=== PATIENT | male | born 1935 | race Caucasian/White ===

== ENCOUNTER 2018-02-15 10:27 | Outpatient (CLI) | payer MEDICARE ==
--- NOTE | 2018-02-15 13:26 | RAD ---
RIGHT RIBS THREE VIEWS: History: Pain. Comparison: None. FINDINGS: No fracture. No cortical irregularity. No periosteal reaction. IMPRESSION: No fracture. POS: [facility]
== END 2018-02-15 10:28 | disposition home or self-care (01) ==
LOC: RAD-FRANK 10:27
DX: R07.81 Pleurodynia (principal)

== ENCOUNTER 2018-04-25 10:51 | Outpatient (CLI) | payer MEDICARE ==
--- NOTE | 2018-04-25 12:21 | RAD ---
CHEST 2 VIEWS: Date: 04/25/18 HISTORY: Hallucinations. Syncope. COMPARISON: 01/14/15 study. FINDINGS: Heart size within normal limits. There is flattening to the hemidiaphragms suggesting some chronic lon ng change. No focal infiltrative process. IMPRESSION: No active intrathoracic disease. Chronic lung change. Stable exam. POS: [facility]
== END 2018-04-25 10:52 | disposition home or self-care (01) ==
LOC: RAD-FRANK 10:51
PROVIDERS: ATTEND Nurse Practitioner Family
DX: R44.1 Visual hallucinations (principal)
CPT/HCPCS: 71046

== ENCOUNTER 2018-05-09 09:15 | Outpatient (CLI) | payer MEDICARE ==
--- NOTE | 2018-05-09 12:16 | CT ---
HEAD CT WITHOUT CONTRAST: Date: 05/09/18 HISTORY: Visual hallucinations. COMPARISON: 06/14/13. TECHNIQUE: Noncontrast head CT is performed from skull base to skull vertex. FINDINGS: No parenchymal hemorrhage. No extra-axial hematoma. No midline shift. Basilar cisterns are patent. Ag e-appropriate atrophy. Cortical oro-white matter differentiation preserved. Ventricles and sulci are patent and symmetric. Stable white matter hypodensities due to chronic small vessel ischemic change. 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 Adequate aeration of the sinuses and mastoid air cells. Both globes are unremarkable and intact. IMPRESSION: No acute intracranial process. POS: [facility]
== END 2018-05-09 09:16 | disposition home or self-care (01) ==
LOC: CT 09:15
DX: R44.1 Visual hallucinations (principal)
CPT/HCPCS: 70450

== ENCOUNTER 2022-05-19 11:09 | Observation (INO) | payer MEDICARE ==
[2022-05-19 12:05] LABS: #Eosinphils 0.5 thou/uL (0.0-0.7); #Lymphocytes 1.5 thou/uL (1.20-3.40); #Monocytes 0.8 thou/uL (0.11-0.59); %Basophils 0.2 % (0.0-1.0); %Eosinophils 5.6 % (0.0-10.0); %Monocytes 8.6 % (0.0-10.0); %Neutrophils 68.6 % (42.0-75.0); Hemoglobin 12.5 g/dL (14.0-18.0); Mean Corpuscular HGB CONC 31.9 g/dL (32.0-36.0); Mean Corpuscular Hemoglobin 29.8 pg (27.0-31.0); Mean Corpuscular Volume 93.4 fL (78.0-98.0); Mean Platelet Volume 8.3 fL (7.4-10.4); Platelet Count 242 thou/uL (130-400); RBC Distribution Width 14.5 % (11.5-14.5); Red Blood Cell (RBC) Count 4.18 mill/uL (4.70-6.10); White Blood Cell (WBC) Count 8.7 thou/uL (4.8-10.8)
[2022-05-19 12:29] LABS: BUN (Urea Nitrogen) 13 mg/dL (8.4-25.7); Bilirubin, Total 0.8 mg/dL (0.2-1.2); Calc. Creatinine Clearance 0 mL/min (70-130); Calcium 9.8 mg/dL (7.8-10.44); Estimated GFR 53; Glucose 133 mg/dL (83-110)
[2022-05-19 12:30] LABS: ALT (SGPT) 7 U/L (8-55); AST (SGOT) 23 U/L (5-34); Albumin 3.3 g/dL (3.4-4.8); Alkaline Phosphatase 106 U/L (40-110); Globulin 3.5 g/dL (2.4-3.5); Protein, Total 6.8 g/dL (5.8-8.1)
[2022-05-19 12:38] LABS: Anion Gap 16 mmol/L (10-20); Carbon Dioxide 35 mmol/L (23-31); Chloride 95 mmol/L (98-107); Potassium 4.1 mmol/L (3.5-5.1); Sodium 142 mmol/L (136-145)
[2022-05-19 13:34] LABS: Bilirubin Negative (Negative); Blood, Urine Negative (Negative); Clarity Clear (Clear); Glucose, Urine (Dipstick) Normal (Negative); Ketone, Urine Negative (Negative); Leukocyte Negative Leu/uL (Negative); Nitrite Negative (Negative); Protein, Urine (Dipstick) 10 mg/dL (Neg-Trace); pH, Urine 6.5 (5.0-9.0)
[2022-05-19 13:42] LABS: Amphetamine Not Detected (NotDetected); Barbiturates Screen Not Detected (NotDetected); Benzodiazepine Screen Not Detected (NotDetected); Cocaine Metabolite Screen Not Detected (NotDetected); Methadone Not Detected (NotDetected); Methamphetamine Not Detected (NotDetected); Opiate Screen Not Detected (NotDetected); Oxycodone Screen Not Detected (NotDetected); Phencyclidine (PCP) Not Detected (NotDetected); THC/Cannabinoid Screen Not Detected (NotDetected); Tricyclic Screen Not Detected (NotDetected)
[2022-05-19] MEDS ORDERED: Ondansetron ODT 4 MG TAB PO PRN (15:23)
[2022-05-19] MEDS ORDERED: Acetaminophen 325 MG TAB PO PRN (15:23)
[2022-05-19] MEDS ORDERED: Acetaminophen 650 MG Suppository PR PRN (15:23)
[2022-05-19] MEDS ORDERED: Ondansetron PF 4 MG/2 ML Vial IVP PRN (15:23)
[2022-05-19 15:40] LABS: SARS-CoV-2 NAA Rapid Test Not Detected (NotDetected)
[2022-05-19 16:04] LABS: Hemoglobin A1c 6.9 % (4.0-6.0)
[2022-05-19 16:16] LABS: Acetaminophen Less than 10.0 mcg/mL (10.0-30.0); Alcohol Less than 10 mg/dL (Less than 10); Salicylate Less than 8.0 mg/dL (15.0-30.0)
[2022-05-19] MEDS: Sodium Chloride 0.9% 1,000 ML IV SCH (16:19)
[2022-05-19] MEDS ORDERED: Aspirin 300 MG Suppository PR SCH (16:55)
[2022-05-19 17:42] LABS: Troponin I 0.019 ng/mL (< 0.028)
[2022-05-19 19:31] LABS: Troponin I Less than 0.010 ng/mL (< 0.028)
[2022-05-20 00:43] VITALS: BMI 20.5
[2022-05-20 05:17] LABS: #Eosinphils 0.5 thou/uL (0.0-0.7); #Lymphocytes 1.3 thou/uL (1.20-3.40); #Monocytes 0.7 thou/uL (0.11-0.59); #Neutrophils 5.2 thou/uL (1.40-6.50); %Basophils 0.1 % (0.0-1.0); %Lymphocytes 17.2 % (21.0-51.0); %Monocytes 9.1 % (0.0-10.0); %Neutrophils 66.7 % (42.0-75.0); Hemoglobin 11.7 g/dL (14.0-18.0); Mean Corpuscular Hemoglobin 30.4 pg (27.0-31.0); Mean Corpuscular Volume 95.2 fL (78.0-98.0); Mean Platelet Volume 8.3 fL (7.4-10.4); Platelet Count 224 thou/uL (130-400); RBC Distribution Width 14.2 % (11.5-14.5); Red Blood Cell (RBC) Count 3.85 mill/uL (4.70-6.10); White Blood Cell (WBC) Count 7.8 thou/uL (4.8-10.8)
[2022-05-20 05:28] LABS: BUN (Urea Nitrogen) 13 mg/dL (8.4-25.7); Calc. Creatinine Clearance 39 mL/min (70-130); Calcium 9.2 mg/dL (7.8-10.44); Cardiac Risk 3.4 (Less than 4.5); Cholesterol 95 mg/dl (< 200 Desired); Estimated GFR 61; Glucose 106 mg/dL (83-110); HDL Cholesterol 28 mg/dL (>60 Neg Risk); LDL Cholesterol, Calculated 48 mg/dL; Triglycerides 96 mg/dL (Less than 150)
[2022-05-20 05:38] LABS: Anion Gap 19 mmol/L (10-20); Carbon Dioxide 32 mmol/L (23-31); Chloride 96 mmol/L (98-107); Sodium 143 mmol/L (136-145)
[2022-05-20] MEDS ORDERED: Lisinopril 20 MG TAB PO SCH (11:00)
[2022-05-20] MEDS ORDERED: Atorvastatin Calcium 40 MG TAB PO SCH (11:00)
[2022-05-20] MEDS ORDERED: Tamsulosin HCl 0.4 MG CAP PO SCH (11:00)
[2022-05-20] MEDS ORDERED: Aspirin 325 mg Enteric Coated Tablet PO SCH (11:00)
[2022-05-20] MEDS: Sodium Chloride 0.9% 1,000 ML IV SCH (11:32)
[2022-05-20 17:13] VITALS: BP 130/72; TEMP 97.2
[2022-05-20] MEDS ORDERED: Mometasone 200 MCG/Formoterol 5 MCG 120 PUFF INHALER INH SCH (18:30)
[2022-05-20] MEDS ORDERED: rOPINIRole HCl 0.5 MG TAB PO SCH (21:00)
[2022-05-20] MEDS ORDERED: Heparin 5,000 UNITS/ML VIAL SC SCH (21:00)
[2022-05-21] MEDS ORDERED: Atorvastatin Calcium 40 MG TAB PO SCH (09:00)
[2022-05-21] MEDS ORDERED: Tamsulosin HCl 0.4 MG CAP PO SCH (09:00)
[2022-05-21] MEDS ORDERED: Aspirin 325 mg Enteric Coated Tablet PO SCH (09:00)
[2022-05-21] MEDS ORDERED: Lisinopril 20 MG TAB PO SCH (09:00)
== END 2022-05-20 18:01 | disposition home or self-care (01) ==
LOC: ERS 11:09 → ERHOLD 15:07 → NEURO 18:45
PROVIDERS: ADMIT Internal Medicine; ATTEND Internal Medicine
DX: R41.82 Altered mental status, unspecified (principal); R47.81 Slurred speech; R00.1 Bradycardia, unspecified; I95.9 Hypotension, unspecified; R29.6 Repeated falls; N17.9 Acute kidney failure, unspecified; R73.9 Hyperglycemia, unspecified; D64.9 Anemia, unspecified; R13.10 Dysphagia, unspecified; I11.0 Hypertensive heart disease with heart failure; I50.9 Heart failure, unspecified; J44.9 Chronic obstructive pulmonary disease, unspecified; K21.9 Gastro-esophageal reflux disease without esophagitis; E78.5 Hyperlipidemia, unspecified; N40.0 Benign prostatic hyperplasia without lower urinary tract symptoms; I69.351 Hemiplegia and hemiparesis following cerebral infarction affecting right dominant side; Z87.891 Personal history of nicotine dependence; Z79.82 Long term (current) use of aspirin; Z79.899 Other long term (current) drug therapy; Z20.822 Contact with and (suspected) exposure to COVID-19; W19.XXXA Unspecified fall, initial encounter
CPT/HCPCS: 51701; 70450; 70551; 71045; 80048; 80053; 80061; 80306; 80307; 81003; 82140; 82962; 83036; 84484 ×2; 85025 ×2; 93005; 93880; 94760; 95816; 95819; 95957; 97116; 97535; 99285; G0378 ×3; U0002; 36415; 36416; J7050

== ENCOUNTER 2022-05-22 15:48 | Emergency (ER) | payer MEDICARE ==
[2022-05-22 16:26] LABS: #Eosinphils 0.2 thou/uL (0.0-0.7); #Lymphocytes 1.2 thou/uL (1.20-3.40); #Monocytes 0.6 thou/uL (0.11-0.59); #Neutrophils 4.3 thou/uL (1.40-6.50); %Basophils 0.5 % (0.0-1.0); %Eosinophils 3.6 % (0.0-10.0); %Monocytes 9.8 % (0.0-10.0); %Neutrophils 67.2 % (42.0-75.0); Hemoglobin 11.6 g/dL (14.0-18.0); Mean Corpuscular HGB CONC 34.1 g/dL (32.0-36.0); Mean Corpuscular Hemoglobin 32.2 pg (27.0-31.0); Mean Corpuscular Volume 94.5 fL (78.0-98.0); Platelet Count 225 thou/uL (130-400); RBC Distribution Width 14.3 % (11.5-14.5); White Blood Cell (WBC) Count 6.4 thou/uL (4.8-10.8)
[2022-05-22 16:41] LABS: ALT (SGPT) 11 U/L (8-55); AST (SGOT) 20 U/L (5-34); Alkaline Phosphatase 91 U/L (40-110); Anion Gap 11 mmol/L (10-20); BUN (Urea Nitrogen) 11 mg/dL (8.4-25.7); Bilirubin, Total 0.6 mg/dL (0.2-1.2); Calc. Creatinine Clearance 0 mL/min (70-130); Calcium 8.8 mg/dL (7.8-10.44); Carbon Dioxide 36 mmol/L (23-31); Chloride 99 mmol/L (98-107); Estimated GFR 54; Glucose 177 mg/dL (83-110); Potassium 4.2 mmol/L (3.5-5.1); Sodium 142 mmol/L (136-145)
== END 2022-05-22 21:21 ==
LOC: ERS 15:48
DX: R53.1 Weakness (principal); R26.2 Difficulty in walking, not elsewhere classified; I10 Essential (primary) hypertension; E78.5 Hyperlipidemia, unspecified; Z86.73 Personal history of transient ischemic attack (TIA), and cerebral infarction without residual deficits; F17.220 Nicotine dependence, chewing tobacco, uncomplicated; Z79.82 Long term (current) use of aspirin; Z79.899 Other long term (current) drug therapy
CPT/HCPCS: 36415; 80053; 85025; 93005; 94760